=== PATIENT | female | born 1985 | race Caucasian/White ===

== ENCOUNTER 2024-08-26 19:37 | Emergency (ER) | payer BC ==
[2024-08-26] MEDS: Lidocaine 1% 5 ML VIAL INJECT ONE (21:02)
== END 2024-08-26 21:03 | disposition home or self-care (01) ==
LOC: DL.ED 19:37
DX: S61.211A Laceration without foreign body of left index finger without damage to nail, initial encounter (principal); W26.0XXA Contact with knife, initial encounter; Y93.89 Activity, other specified; Z88.1 Allergy status to other antibiotic agents
CPT/HCPCS: 12001; 99282; J2003